=== PATIENT | male | born 1995 | race Hispanic/Latino ===

== ENCOUNTER 2020-06-26 19:10 | Emergency (ER) | payer SELFPAY ==
[2020-06-26] MEDS ORDERED: LIDOCAINE 1% MPF 30 ML VIAL ONE (20:27)
[2020-06-26] MEDS ORDERED: LIDOCAINE 1% MPF 5 ML VIAL ONE (20:29)
--- NOTE | 2020-06-26 21:00 | ER ---
Nurse's Notes [facility] Name: True Ugalde Age: 25 yrs Sex: Male : 1995 Arrival Date: 06/26/2020 Time: 19:11 Bed 30 Private MD: Diagnosis: Superficial laceration left hand Presentation: 06/26 19:54 Chief complaint: Patient states: Pt reports he was stripping wire and missed and cut ea his left hand, reports it happened about two hours ago. Coronavirus screen: At this time, the client does not indicate any symptoms associated with coronavirus-19. Ebola Screen: No symptoms or risks identified at this time. Complicating Factors: There are no complicating factors for this patient. Risk Assessment: Do you want to hurt yourself or someone else? Patient reports no desire to harm self or others. 19:54 Method Of Arrival: Ambulatory ea 19:54 Acuity: YODIT 3 ea 19:57 Onset of symptoms was June 26, 2020. ea Historical: - Allergies: 19:57 No Known Allergies; ea - Home Meds: 19:57 None [Active]; ea - PMHx: 19:57 None; ea - PSHx: 19:57 LEFT ARM SURGERY; ea - Immunization history:: Adult Immunizations unknown. - Social history:: Smoking status: Patient reports the use of cigarette tobacco products, denies chronic smoking, but will smoke occasionally. - Family history:: not pertinent. - Hospitalizations: : No recent hospitalization is reported. Screenin:55 Abuse screen: Denies threats or abuse. Nutritional screening: No deficits noted. ea Tuberculosis screening: No symptoms or risk factors identified. Fall Risk None identified. Assessment: 20:00 General: Appears in no apparent distress. uncomfortable, Behavior is calm, cooperative. bb Pain: Complains of pain in left hand Pain currently is 7 out of 10 on a pain scale. Neuro: Level of Consciousness is awake, alert, obeys commands, Oriented to person, place, time, situation. Cardiovascular: No deficits noted. Respiratory: No deficits noted. Derm: Skin is pink, warm \T\ dry. Musculoskeletal: Circulation, motion, and sensation intact. Injury Description: Laceration sustained to left hand is 2.6 to 7.5 cm long, bleeding moderately, was sustained 2-4 hours ago. 21:25 Reassessment: Patient is alert, oriented x 3, equal unlabored respirations, skin bb warm/dry/pink. suture line intact, dressed with non-adherent pad, kerlix, and an ajit wrap. Pt verbalized understanding of and agrees to plan of care discharge instructions given pt ambulated with steady gait to exit accompanied by family. Vital Signs: 19:58 BP 152 / 94; Pulse 75; Resp 18; Temp 98.3; Pulse Ox 99% ; Weight 95.25 kg; Height 5 ft. ea 10 in. (177.80 cm); Pain 7/10; 19:58 Body Mass Index 30.13 (95.25 kg, 177.80 cm) ea ED Course: 19:11 Patient arrived in ED. bp1 19:55 Triage completed. ea 19:59 Cem Leong MD is Attending Physician. rn 20:00 Patient has correct armband on for positive identification. Bed in low position. Call bb light in reach. Side rails up X 1. Adult w/ patient. 20:07 Karine Cheek RN is Primary Nurse. bb 21:28 Dressings: Kerlix X 1; left hand non-adherent dressing x 1 left hand ajit wrap. bb 21:28 No provider procedures requiring assistance completed. Patient did not have IV access bb during this emergency room visit. Administered Medications: 20:50 Drug: Lidocaine (1 %) 1 vials {Note: administered by Yandy Mancilla BARREL AND RECEIVER ALIGNER to affected bb area.} Volume: 20 ml; Route: Infiltration; 21:23 Follow up: Response: No adverse reaction bb 21:10 Drug: Tetanus-Diphtheria Toxoid Adult 0.5 ml {Direct Entry Midwife: [email or web address]. Exp: bb 06/10/2021. Lot #: [id number]. } Route: IM; Site: right deltoid; 21:23 Follow up: Response: No adverse reaction bb Outcome: 21:00 Discharge ordered by . rn 21:29 Discharged to home ambulatory, with family. bb 21:29 Condition: stable 21:29 Discharge instructions given to patient, Instructed on discharge instructions, follow up and referral plans. medication usage, wound care, Demonstrated understanding of instructions, follow-up care, medications, wound care, Prescriptions given X 1. 21:29 Patient left the ED. bb Signatures: Karine Cheek RN RN bb Nieto, Roman, MD MD rn Antunez, Elena, RN RN Angeles Gonzalez
--- NOTE | 2020-06-26 21:01 | EDPHYS ---
Physician Documentation [facility] Name: True Ugalde Age: 25 yrs Sex: Male : 1995 Arrival Date: 06/26/2020 Time: 19:11 Bed 30 Private MD: ED Physician Cem Leong HPI: 06/26 20:07 This 25 yrs old Male presents to ER via Ambulatory with complaints of rn Laceration To Hand. 20:07 The patient has a laceration. The laceration(s) is(are) located on the left hand. rn Onset: The symptoms/episode began/occurred 2 hour(s) ago. Associated signs and symptoms: Pertinent negatives: heavy bleeding, loss of consciousness, suspected foreign body. The patient has not experienced similar symptoms in the past. Reports stripping wire, accidentally cut left hand with knife about 2 weeks old. Does not feel like anything stuck in hand, knife intact and did not break. No weakness or change in ROM, just pain to base of left hand. . Historical: - Allergies: 19:57 No Known Allergies; ea - Home Meds: 19:57 None [Active]; ea - PMHx: 19:57 None; ea - PSHx: 19:57 LEFT ARM SURGERY; ea - Immunization history:: Adult Immunizations unknown. - Social history:: Smoking status: Patient reports the use of cigarette tobacco products, denies chronic smoking, but will smoke occasionally. - Family history:: not pertinent. - Hospitalizations: : No recent hospitalization is reported. ROS: 20:07 Constitutional: Negative for fever, chills, and weight loss, MS/Extremity: + laceration rn to left hand Neuro: Negative for weakness, numbness, tingling Exam: 20:07 Constitutional: This is a well developed, well nourished patient who is awake, alert, rn and in no acute distress. Ambulatory to room without difficulty. MS/ Extremity: Pulses equal, no cyanosis. Neurovascular intact. Full, normal range of motion. 4 cm linear laceration base of left hand just proximal to base of thumb, good strength, no limitiation of movement. NO active bleeding. No exposure of tendon. Neuro: Awake and alert, GCS 15 Vital Signs: 19:58 BP 152 / 94; Pulse 75; Resp 18; Temp 98.3; Pulse Ox 99% ; Weight 95.25 kg; Height 5 ft. ea 10 in. (177.80 cm); Pain 7/10; 19:58 Body Mass Index 30.13 (95.25 kg, 177.80 cm) ea Laceration: 20:51 Wound Repair of 4cm ( 1.6in ) subcutaneous laceration to heel of left hand. Linear kb shaped.. Distal neuro/vascular/tendon intact. Anesthesia: Wound infiltrated with 8 mls of 1% lidocaine. Wound prep: Extensive cleansing with hibiclenz by me, Wound irrigation with saline by me. Skin closed with 7 5-0 Prolene using 2 simple sutures, 5 cruciate sutures. Patient tolerated well. MDM: 19:59 Patient medically screened. rn 20:59 Differential diagnosis: superficial laceration. Data reviewed: vital signs, nurses rn notes, and as a result, I will discharge patient. Counseling: I had a detailed discussion with the patient and/or guardian regarding: the historical points, exam findings, and any diagnostic results supporting the discharge/admit diagnosis, the need for outpatient follow up, to return to the emergency department if symptoms worsen or persist or if there are any questions or concerns that arise at home. Response to treatment: the patient's symptoms have markedly improved after treatment, and as a result, I will discharge patient. Special discussion: I discussed with the patient/guardian in detail that at this point there is no indication for admission to the hospital. It is understood, however, that if the symptoms persist or worsen the patient needs to return immediately for re-evaluation. 06/26 20:06 Order name: Suture Tray at Bedside; Complete Time: 20:14 rn 06/26 20:06 Order name: Wound Care; Complete Time: 20:14 rn 06/26 20:06 Order name: Wound dressing; Complete Time: 20:14 rn Administered Medications: 20:50 Drug: Lidocaine (1 %) 1 vials {Note: administered by Yandy Mancilla NP to affected bb area.} Volume: 20 ml; Route: Infiltration; 21:23 Follow up: Response: No adverse reaction bb 21:10 Drug: Tetanus-Diphtheria Toxoid Adult 0.5 ml {Capital Equipment Specialist: [employer]. Exp: bb 06/10/2021. Lot #: [id number]. } Route: IM; Site: right deltoid; 21:23 Follow up: Response: No adverse reaction bb Disposition: 06/27 18:59 Co-signature as Attending Physician, Cem Leong MD. rn Disposition: 06/26/20 21:00 Discharged to Home. Impression: Superficial laceration left hand. - Condition is Stable. - Discharge Instructions: Laceration Care, Adult, Sutured Wound Care. - Prescriptions for Augmentin 875- 125 mg Oral Tablet - take 1 tablet by ORAL route every 12 hours for 10 days; 20 tablet. - Medication Reconciliation Form, Thank You Letter, Antibiotic Education, Prescription Opioid Use form. - Follow up: Private Physician; When: 14 days; Reason: Staple/Suture removal. - Problem is new. - Symptoms have improved. Signatures: Yandy Mancilla, LAURA-C HOG TRADER-Karine Narvaez RN Cem Tirado MD MD rn Antunez, Elena, RN SABINE fragoso Corrections: (The following items were deleted from the chart) 06/26 21:29 21:00 06/26/2020 21:00 Discharged to Home. Impression: Superficial laceration left bb hand. Condition is Stable. Forms are Medication Reconciliation Form, Thank You Letter, Antibiotic Education, Prescription Opioid Use. Follow up: Private Physician; When: 14 days; Reason: Staple/Suture removal. Problem is new. Symptoms have improved. rn
[2020-06-26] MEDS ORDERED: TETANUS & DIPHTHERIA TOX,ADULT 0.5 ML VIAL ONE (21:26)
[2020-06-26 21:42] VITALS: BP 152/94; TEMP 98.3; O2SAT 99
== END 2020-06-26 21:29 | disposition home or self-care (01) ==
LOC: ER 19:10
PROC: 0JQK0ZZ Repair Left Hand Subcutaneous Tissue and Fascia, Open Approach (ICD-10-PCS; principal; 2020-06-26)
DX: S61.412A Laceration without foreign body of left hand, initial encounter (principal); W26.0XXA Contact with knife, initial encounter; Y93.89 Activity, other specified; Z23 Encounter for immunization; F17.210 Nicotine dependence, cigarettes, uncomplicated
CPT/HCPCS: 90471; 90714; 99283

== ENCOUNTER 2020-07-10 16:57 | Emergency (ER) | payer SELFPAY ==
--- NOTE | 2020-07-10 17:10 | EDPHYS ---
Physician Documentation [facility] Name: True Ugalde Age: 25 yrs Sex: Male : 1995 Arrival Date: 07/10/2020 Time: 16:59 Bed Waiting Private MD: ED Physician Dilma Soriano HPI: 07/10 18:06 This 25 yrs old Male presents to ER via Ambulatory with complaints of Suture kb Removal. 18:06 The patient has sutures on the heel of left hand. Previous treatment: The patient was kb initially treated 14 day(s) ago, the care was rendered at [facility], Treatment type: The patient's original treatment included sutures. Sutures/allen progress: The patient has no c/o's. The wound is well-healing with no redness, swelling, discharge, or dehiscence reported. The patient has not experienced similar symptoms in the past. The patient has not recently seen a physician. Historical: - Allergies: 17:04 No Known Allergies; ca1 - Home Meds: 17:04 None [Active]; ca1 - PMHx: 17:04 None; ca1 - PSHx: 17:04 LEFT ARM SURGERY; ca1 - Immunization history:: Client reports having NOT received the Covid vaccine. Last tetanus immunization: < 5 years ago. - Social history:: Smoking status: Patient reports the use of cigarette tobacco products, denies chronic smoking, but will smoke occasionally. ROS: 17:59 Constitutional: Negative for fever, chills, and weight loss. kb 17:59 Skin: Positive for laceration(s), of the heel of left hand, sutures in place. 17:59 All other systems are negative. Exam: 17:59 Constitutional: This is a well developed, well nourished patient who is awake, alert, kb and in no acute distress. Head/Face: Normocephalic, atraumatic. ENT: Moist Mucous membranes Respiratory: Respirations even and unlabored. No increased work of breathing, no retractions or nasal flaring. MS/ Extremity: Pulses equal, no cyanosis. Neurovascular intact. Full, normal range of motion. Neuro: Awake and alert, GCS 15, oriented to person, place, time, and situation. Moves all extremities. Normal gait. Psych: Awake, alert, with orientation to person, place and time. Behavior, mood, and affect are within normal limits. 17:59 Skin: Wound recheck: Suture laceration closure: the wound is healing well, the edges are well approximated, no evidence of dehiscence, no drainage, no erythema, no swelling. Vital Signs: 17:06 BP 132 / 89; Pulse 65; Resp 16 S; Temp 97.4(TE); Pulse Ox 100% on R/A; Weight 95.25 kg ca1 (R); Height 5 ft. 10 in. (177.80 cm) (R); Pain 0/10; 17:06 Body Mass Index 30.13 (95.25 kg, 177.80 cm) ca1 Procedures: 17:59 Suture/Staple removal: Removed 7 sutures, from heel of left hand, site appears well kb healed, dressed with steristrips. Patient tolerated well. MDM: 17:02 Patient medically screened. kb 17:56 Data reviewed: vital signs, nurses notes. Data interpreted: Pulse oximetry: on room air kb is 100 %. Interpretation: normal. Counseling: I had a detailed discussion with the patient and/or guardian regarding: the historical points, exam findings, and any diagnostic results supporting the discharge/admit diagnosis, the need for outpatient follow up, a family practitioner, to return to the emergency department if symptoms worsen or persist or if there are any questions or concerns that arise at home. Administered Medications: No medications were administered Disposition: 18:20 Co-signature as Attending Physician, Dilma Soriano MD. ma2 Disposition: 07/10/20 17:09 Discharged to Home. Impression: Encounter for removal of sutures. - Condition is Stable. - Discharge Instructions: Suture Removal, Care After. - Medication Reconciliation Form, Thank You Letter, Antibiotic Education, Prescription Opioid Use form. - Follow up: Emergency Department; When: As needed; Reason: Worsening of condition. Follow up: Private Physician; When: 2 - 3 days; Reason: Recheck today's complaints, Continuance of care, Re-evaluation by your physician. Signatures: Yandy Mancilla, LAURA-C LAURA-Dilma Gregory MD MD ma2 Ashley Restrepo RN RN ca1 Corrections: (The following items were deleted from the chart) 17:13 17:09 07/10/2020 17:09 Discharged to Home. Impression: Encounter for removal of ca1 sutures. Condition is Stable. Forms are Medication Reconciliation Form, Thank You Letter, Antibiotic Education, Prescription Opioid Use. Follow up: Emergency Department; When: As needed; Reason: Worsening of condition. Follow up: Private Physician; When: 2 - 3 days; Reason: Recheck today's complaints, Continuance of care, Re-evaluation by your physician. kb
--- NOTE | 2020-07-10 17:10 | ER ---
Nurse's Notes [facility] Name: True Ugalde Age: 25 yrs Sex: Male : 1995 Arrival Date: 07/10/2020 Time: 16:59 Bed Waiting Private MD: Diagnosis: Encounter for removal of sutures Presentation: 07/10 17:03 Chief complaint: Patient states: lac repair on 06/26/2020. For removal today. Coronavirus ca1 screen: Client denies travel out of the [place] in the last 14 days. At this time, the client does not indicate any symptoms associated with coronavirus-19. Ebola Screen: Patient negative for fever greater than or equal to 101.5 degrees Fahrenheit, and additional compatible Ebola Virus Disease symptoms Patient denies exposure to infectious person. Patient denies travel to an Ebola-affected area in the 21 days before illness onset. No symptoms or risks identified at this time. Initial Sepsis Screen: Does the patient meet any 2 criteria? No. Patient's initial sepsis screen is negative. Does the patient have a suspected source of infection? No. Patient's initial sepsis screen is negative. Risk Assessment: Do you want to hurt yourself or someone else? Patient reports no desire to harm self or others. Onset of symptoms was July 10, 2020. 17:03 Method Of Arrival: Ambulatory ca1 17:03 Acuity: YODIT 5 ca1 Triage Assessment: 17:04 General: Appears in no apparent distress. comfortable, Behavior is calm, cooperative, ca1 appropriate for age. Pain: Denies pain. Derm: Skin is intact, is healthy with good turgor, Skin is pink, warm \T\ dry. Historical: - Allergies: 17:04 No Known Allergies; ca1 - Home Meds: 17:04 None [Active]; ca1 - PMHx: 17:04 None; ca1 - PSHx: 17:04 LEFT ARM SURGERY; ca1 - Immunization history:: Client reports having NOT received the Covid vaccine. Last tetanus immunization: < 5 years ago. - Social history:: Smoking status: Patient reports the use of cigarette tobacco products, denies chronic smoking, but will smoke occasionally. Screenin:05 Abuse screen: Denies threats or abuse. Denies injuries from another. Nutritional ca1 screening: No deficits noted. Tuberculosis screening: No symptoms or risk factors identified. Fall Risk None identified. Assessment: 17:05 Reassessment: see triage notes. ca1 Vital Signs: 17:06 BP 132 / 89; Pulse 65; Resp 16 S; Temp 97.4(TE); Pulse Ox 100% on R/A; Weight 95.25 kg ca1 (R); Height 5 ft. 10 in. (177.80 cm) (R); Pain 0/10; 17:06 Body Mass Index 30.13 (95.25 kg, 177.80 cm) ca1 ED Course: 16:59 Patient arrived in ED. mr 17:01 [facility] kb 17:01 Dilma Soriano MD is Attending Physician. kb 17:03 Triage completed. ca1 17:04 Arm band placed on right wrist. ca1 17:05 Patient has correct armband on for positive identification. ca1 17:06 No provider procedures requiring assistance completed. Patient did not have IV access ca1 during this emergency room visit. Removal of Removed sutures from heel of left hand Suture site is well healed Patient tolerated well. Administered Medications: No medications were administered Outcome: 17:07 Discharged to home ambulatory. ca1 17:07 Condition: stable 17:07 Discharge instructions given to patient, Instructed on discharge instructions, follow up and referral plans. Demonstrated understanding of instructions, follow-up care. 17:09 Discharge ordered by MD. kb 17:13 Patient left the ED. ca1 Signatures: Yandy Mancilla FNP-C FNP-Kristel Nicole Dixon mr Kaye, Ashley, RN RN ca1
[2020-07-10 17:30] VITALS: BP 132/89; TEMP 97.4; O2SAT 100
== END 2020-07-10 17:13 | disposition home or self-care (01) ==
LOC: ER 16:57
DX: Z48.02 Encounter for removal of sutures (principal); S61.412D Laceration without foreign body of left hand, subsequent encounter; F17.210 Nicotine dependence, cigarettes, uncomplicated
CPT/HCPCS: 99281

== ENCOUNTER 2021-02-12 05:33 | Emergency (ER) | payer SELFPAY ==
[2021-02-12] MEDS ORDERED: PROMETHAZINE INJ 25 MG/ML AMP ONE (05:51)
[2021-02-12] MEDS ORDERED: NA CHLORIDE 0.9% 1,000 ML ONE ×2 (05:52→08:25)
[2021-02-12] MEDS ORDERED: FAMOTIDINE 20 MG/2 ML VIAL IV ONE (05:52)
[2021-02-12] MEDS ORDERED: MORPHINE 4 MG/ML SYR ONE (05:52)
[2021-02-12 06:00] LABS: Absolute Lymphocytes (CBC) 0.8 K/uL (0.7-4.9); Basophils % 0.2 % (0-1.3); Hematocrit 45.3 % (39.6-49.0); Lymphocytes % 7.5 % (15.3-44.8); MPV 9.2 fL (7.6-11.3); RBC Red Blood Cell Count 5.32 M/uL (4.33-5.43)
[2021-02-12 06:35] LABS: Albumin 4.5 g/dL (3.4-5.0); Bilirubin Direct 0.3 mg/dL (0-0.2); Bilirubin Total 1.1 mg/dL (0.2-1.0); Blood Morphology Comment NOT SEEN (NOT SEEN); Magnesium 1.8 mg/dL (1.8-2.4); Platelet Estimate ADEQ; White Blood Cell Scan OK (OK)
[2021-02-12 06:38] LABS: Potassium 2.8 mmol/L (3.5-5.1)
[2021-02-12 06:51] LABS: SARS-COV-2 RT PCR NEGATIVE (NEGATIVE)
[2021-02-12] MEDS ORDERED: KCL 20 MEQ/100 mL IVPB 100 ML IV ONE (06:51)
[2021-02-12] MEDS ORDERED: NA CHLORIDE 0.9% 500 ML ONE (06:51)
--- NOTE | 2021-02-12 07:41 | RAD REPORT ---
EXAM DESCRIPTION: CTAbdomen Pelvis W Contrast - 02/12/2021 7:17 am CLINICAL HISTORY: Diarrhea;Abd pain;Nausea / vomiting COMPARISON: No comparisons TECHNIQUE: CT of the abdomen and pelvis was performed. All CT scans are performed using dose optimization technique as appropriate and may include automated exposure control or mA/KV adjustment according to patient size. FINDINGS: Lower chest: Small hiatal hernia. Mild circumferential thickening of distal esophagus. Liver: No acute abnormality or suspicious lesions. Biliary: No biliary ductal dilatation. Stomach: No significant focal abnormality. Duodenum: No significant focal abnormality. Pancreas: No significant abnormality. Spleen: No significant abnormality. Adrenal: No suspicious lesions. Kidney/ureter: No hydronephrosis. No renal calculi. Too small to characterize and/or benign appearing renal lesions are noted. Retroperitoneum: No retroperitoneal adenopathy. Vascular: No aneurysm. Bowel: Fluid distended small bowel in the right hemiabdomen. Multiple small air-fluid levels are pres ent. The affected loops of small bowel measure up to 2.5 cm.. No appendicitis. Peritoneum: No ascites or free air. Bladder: Grossly unremarkable. Reproductive: No adnexal masses. Bones: No acute fracture. Other: n/a IMPRESSION: Fluid distended small bowel with small air-fluid levels in the right hemiabdomen most li clari representing an enteritis. Normal appendix.
[2021-02-12 07:55] LABS: Urine Blood Negative (Negative); Urine Glucose Trace (Negative); Urine Protein Negative (Negative); Urine pH 8.5 (5.0-7.0)
--- NOTE | 2021-02-12 07:56 | RAD REPORT ---
EXAM DESCRIPTION: RAD - Chest Single View - 02/12/2021 6:09 am CLINICAL HISTORY: SOB COMPARISON: No comparisons FINDINGS: Lines: None. Lungs: No evidence of edema or pneumonia. Pleural: No significant pleural effusions or pneumothorax. Cardiac: The heart size is within normal limits. Bones: No acute fractures. Other: IMPRESSION: No acute cardiopulmonary disease.
--- NOTE | 2021-02-12 08:07 | EKG ---
Test Date: 2021-02-12 Test Time: 05:51:54 Car Cleaning Supervisor: ANTONY MEASUREMENT RESULTS: Intervals: Rate: 121 WY: 128 QRSD: 78 QT: 290 QTc: 411 [place]: P: 35 WY: 128 QRS: 67 T: 66 INTERPRETIVE STATEMENTS: Sinus tachycardia Nonspecific T wave abnormality Abnormal ECG No previous ECG available for comparison Electronically Signed On 02-12-21 08:07:28 VACUUM PAN TENDER by [employer]
[2021-02-12] MEDS ORDERED: CIPROFLOXACIN 400mg IV 0 MG/0 ML BAG IV ONE (08:25)
[2021-02-12] MEDS ORDERED: POTASSIUM 25 MEQ EFFERV TAB ONE (08:25)
[2021-02-12] MEDS ORDERED: NS KCL 20MEQ 1,000 ML IV ONE (08:40)
[2021-02-12] MEDS ORDERED: CIPROFLOXACIN HCL 500 MG TAB ONE (08:40)
--- NOTE | 2021-02-12 09:10 | EDPHYS ---
Physician Documentation [facility] Name: True Ugalde Age: 25 yrs Sex: Male : 1995 Arrival Date: 02/12/2021 Time: 05:34 Bed 7 Private MD: ED Physician Benjamin Boogie HPI: 02/12 05:59 This 25 yrs old Male presents to ER via EMS with complaints of Nausea. mh7 Vomiting. Diarrhea. Shortness of breath.. 05:59 The patient presents to the emergency department with nausea, that is moderate, mh7 vomiting, that is intermittent, 2 times since the onset of symptoms, described as undigested food, diarrhea, that is intermittent, abdominal pain, of the epigastric area, right upper quadrant and left upper quadrant. Onset: The symptoms/episode began/occurred this morning, today, at 02:00. Possible causes: unknown. The symptoms are aggravated by nothing. The symptoms are alleviated by nothing. Associated signs and symptoms: Pertinent positives: diarrhea, nausea, vomiting, Shortness of breath, Pertinent negatives: anorexia, belching, constipation, fever, flatulence, GI bleeding, hematuria. Severity of symptoms: At their worst the symptoms were moderate today, in the emergency department the symptoms are unchanged despite EMS interventions. Historical: - Allergies: 05:36 No Known Allergies; sm5 - Home Meds: 05:36 omeprazole Oral [Active]; sm5 - Immunization history:: Client reports having NOT received the Covid vaccine. - Social history:: Smoking status: Patient reports the use of cigarette tobacco products, Patient uses alcohol, on weekends. ROS: 05:59 Constitutional: Negative for fever, chills, and weight loss, Eyes: Negative for injury, mh7 pain, redness, and discharge, ENT: Negative for injury, pain, and discharge, Neck: Negative for injury, pain, and swelling, Cardiovascular: Negative for chest pain, palpitations, and edema, Back: Negative for injury and pain, : Negative for injury, bleeding, discharge, and swelling, MS/Extremity: Negative for injury and deformity, Skin: Negative for injury, rash, and discoloration, Neuro: Negative for headache, weakness, numbness, tingling, and seizure, Psych: Negative for depression, anxiety, suicide ideation, homicidal ideation, and hallucinations, Allergy/Immunology: Negative for hives, rash, and allergies, Endocrine: Negative for neck swelling, polydipsia, polyuria, polyphagia, and marked weight changes, Hematologic/Lymphatic: Negative for swollen nodes, abnormal bleeding, and unusual bruising. Exam: 05:59 Head/Face: Normocephalic, atraumatic. Eyes: Pupils equal round and reactive to light, mh7 extra-ocular motions intact. Lids and lashes normal. Conjunctiva and sclera are non-icteric and not injected. Cornea within normal limits. Periorbital areas with no swelling, redness, or edema. Neck: Trachea midline, no thyromegaly or masses palpated, and no cervical lymphadenopathy. Supple, full range of motion without nuchal rigidity, or vertebral point tenderness. No Meningismus. Chest/axilla: Normal chest wall appearance and motion. Nontender with no deformity. No lesions are appreciated. 05:59 Respiratory: Lungs have equal breath sounds bilaterally, clear to auscultation and percussion. No rales, rhonchi or wheezes noted. No increased work of breathing, no retractions or nasal flaring. 05:59 Back: No spinal tenderness. No costovertebral tenderness. Full range of motion. Skin: Warm, dry with normal turgor. Normal color with no rashes, no lesions, and no evidence of cellulitis. MS/ Extremity: Pulses equal, no cyanosis. Neurovascular intact. Full, normal range of motion. Neuro: Awake and alert, GCS 15, oriented to person, place, time, and situation. Cranial nerves II-XII grossly intact. Motor strength 5/5 in all extremities. Sensory grossly intact. Cerebellar exam normal. Normal gait. 05:59 Constitutional: The patient appears in no acute distress, alert, awake, anxious, uncomfortable. 05:59 Cardiovascular: Rate: tachycardic, Rhythm: regular, Pulses: no pulse deficits are appreciated, Heart sounds: normal, normal S1and S2, Edema: is not appreciated, JVD: is not appreciated. 05:59 Abdomen/GI: Inspection: abdomen appears normal, Bowel sounds: normal, in all quadrants, Palpation: moderate abdominal tenderness, in the epigastric area, right upper quadrant and left upper quadrant, mass, is not appreciated, rebound tenderness, is not appreciated, voluntary guarding, is not appreciated, involuntary guarding, is not appreciated, no appreciated organomegaly, Rectal exam: the exam is deferred, because of patient request, Indicators: McBurney's point is not tender, Cordero's sign is negative, Rovsing's sign is negative, Obturator sign is negative, Psoas sign is negative, Liver: no appreciated palpable abnormalities, Hernia: not appreciated. 05:59 Psych: Behavior/mood is anxious, Affect is animated, Oriented to person, place, time, Patient has no thoughts/intents to harm self or others. Judgement / Insight is normal. Memory is normal. Delusions/hallucinations are not present. 08:36 ECG was reviewed by the Attending Physician. [facility] Vital Signs: 05:35 BP 111 / 85; Pulse 108; Resp 23; Temp 98.1(O); Pulse Ox 100% on R/A; Weight 96.62 kg; 5 Height 5 ft. 10 in. (177.80 cm); Pain 5/10; 06:23 BP 123 / 83; Pulse 109; Resp 24 S; Pulse Ox 99% on R/A; as6 07:00 BP 129 / 82; Pulse 109; Resp 18; Pulse Ox 100% ; al4 07:20 BP 138 / 90; Pulse 101; Resp 20; Temp 99.2; Pulse Ox 100% ; Pain 0/10; al4 07:45 BP 122 / 80; Pulse 102; Resp 20; Pulse Ox 99% on R/A; Pain 0/10; al4 08:20 BP 133 / 70; Pulse 105; Resp 20 S; Pulse Ox 100% on R/A; al4 08:40 BP 119 / 74; Pulse 106; Resp 20 S; Pulse Ox 100% on R/A; al4 09:00 BP 125 / 70; Pulse 94; Resp 20 S; Pulse Ox 99% on R/A; al4 10:00 BP 124 / 69; Pulse 99; Resp 25 S; Pulse Ox 100% on R/A; Pain 0/10; al4 10:20 BP 122 / 85; Pulse 96; Resp 24 S; Pulse Ox 100% on R/A; Pain 0/10; al4 05:35 Body Mass Index 30.56 (96.62 kg, 177.80 cm) [facility] MDM: 07:25 Patient medically screened. [facility] 08:28 Differential diagnosis: Nonspecific abd pain, gastritis, viral gastroenteritis, spencer gastroenteritis. Data reviewed: vital signs, nurses notes. Data interpreted: Pulse oximetry: on room air is 99 %. Counseling: I had a detailed discussion with the patient and/or guardian regarding: the historical points, exam findings, and any diagnostic results supporting the discharge/admit diagnosis, lab results, radiology results, the need for outpatient follow up, for definitive care, a family practitioner. 02/12 05:45 Order name: Basic Metabolic Panel; Complete Time: 06:48 7 02/12 05:45 Order name: CBC with Diff; Complete Time: 06:48 7 02/12 05:45 Order name: Hepatic Function; Complete Time: 06:48 7 02/12 05:45 Order name: Lipase; Complete Time: 06:48 7 02/12 05:45 Order name: COVID-19/FLU A+B (Document "Date of Onset" if Symptomatic); Complete Time: mh7 06:56 02/12 05:45 Order name: Chest Single View XRAY; Complete Time: 08:15 7 02/12 05:45 Order name: ETOH Level; Complete Time: 06:31 7 02/12 05:46 Order name: Magnesium; Complete Time: 06:48 7 02/12 06:04 Order name: CBC Smear Scan; Complete Time: 06:48 EDMS 02/12 06:57 Order name: CT Abd/Pelvis - IV Contrast Only; Complete Time: 08:15 02/12 07:55 Order name: Urine Dipstick-Ancillary; Complete Time: 08:15 EDMS 02/12 05:45 Order name: IV Saline Lock; Complete Time: 06:02 02/12 05:45 Order name: Labs collected and sent; Complete Time: 06:02 02/12 05:45 Order name: Urine Dipstick-Ancillary (obtain specimen); Complete Time: 07:58 7 02/12 05:45 Order name: EKG; Complete Time: 05:45 02/12 05:45 Order name: EKG - Nurse/Tech; Complete Time: 06:02 02/12 09:08 Order name: PO challenge: juice; Complete Time: 09:09 spencer EC:36 Rate is 121 beats/min. Rhythm is regular. QRS [place] is Normal. ND interval is normal. spencer QRS interval is normal. QT interval is normal. T waves are Normal. No ST changes noted. Clinical impression: Sinus tachycardia and No evidence of ischemia. Interpreted by me. Reviewed by me. Administered Medications: 06:00 Drug: NS 0.9% 1000 ml Route: IV; Rate: 1000 ml; Site: right antecubital; tw5 06:00 Drug: Phenergan (promethazine) 12.5 mg Route: IVP; Site: right antecubital; tw5 07:00 Follow up: Response: No adverse reaction al4 06:00 Drug: Pepcid (famotidine) 20 mg Route: IVP; Site: right antecubital; tw5 07:00 Follow up: Response: No adverse reaction al4 06:00 Drug: morphine 4 mg Route: IVP; Site: right antecubital; tw5 07:00 Follow up: Response: No adverse reaction; RASS: Alert and Calm (0) al4 06:58 Drug: Potassium Chloride 20 mEq Route: IV; Rate: per protocol; Site: right antecubital; sm5 08:00 Follow up: Response: No adverse reaction; IV Status: Completed infusion al4 08:27 Not Given (Duplicate Order): Potassium Chloride 10 mEq IV at per protocol once; spencer administer over 1 hour 08:28 Not Given (Duplicate Order): Cipro (ciprofloxacin) 400 mg 200 ml IVPB once over 60 mins spencer 09:02 Drug: NS 0.9% with KCl 20 mEq/L 1000 ml Route: IV; Rate: 999 ml/hr; Site: right al4 antecubital; 10:41 Follow up: Response: No adverse reaction; IV Status: Completed infusion al4 09:02 Drug: Cipro (ciprofloxacin) 500 mg Route: PO; al4 10:09 Follow up: Response: No adverse reaction al4 09:03 Drug: NS 0.9% 1000 ml Route: IV; Rate: 1 bolus; Site: right antecubital; al4 10:42 Follow up: Response: No adverse reaction; IV Status: Completed infusion al4 09:03 Drug: Potassium Effervescent Tablet 25 mEq Route: PO; al4 10:09 Follow up: Response: No adverse reaction al4 Disposition Summary: 02/12/21 09:09 Discharge Ordered Location: Home spencer Problem: new spencer Symptoms: have improved spencer Condition: Stable spencer Diagnosis - Other viral enteritis spencer - Vomiting spencer - Diarrhea, unspecified spencer - Hypokalemia spencer - Hyperglycemia, unspecified spencer Followup: spencer - With: Private Physician - When: 2 - 3 days - Reason: Recheck today's complaints, Continuance of care, Re-evaluation by your physician Discharge Instructions: - Discharge Summary Sheet spencer - Food Choices to Help Relieve Diarrhea, Adult spencer - Diarrhea, Adult spencer - Potassium Content of Foods spencer - Nausea and Vomiting, Adult spencer - Hyperglycemia spencer - Diarrhea, Adult, [id number] spencer - Hypokalemia spencer - Vomiting, Adult spencer Forms: - Medication Reconciliation Form spencer - Thank You Letter spencer - Antibiotic Education spencer - Prescription Opioid Use spencer - Work release form al4 Prescriptions: - Zofran 4 mg Oral Tablet - take 1 tablet by ORAL route every 12 hours As needed; 20 tablet; Refills: 0, spencer Product Selection Permitted - Potassium Chloride 20 meq Oral Packet - take 1 packet by ORAL route every 12 hours 1 packet in 6 (six) ounces of water spencer or juice; Take after meal; 10 packet; Refills: 0, Product Selection Permitted - Cipro 500 mg Oral Tablet - take 1 tablet by ORAL route every 12 hours for 3 days; 6 tablet; Refills: 0, spencer Product Selection Permitted Signatures: Dispatcher [employer] EDBenjamin Wagner MD MD cha Holmes, Maurice, MD MD [facility] Marilyn Esparza 5 Delgado Bowers Sarah, RN RN sm5
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
[2021-02-12 11:16] VITALS: TEMP 99.2
[2021-02-12 11:22] VITALS: O2SAT 100
[2021-02-12 11:23] VITALS: BP 122/85
== END 2021-02-12 10:42 | disposition home or self-care (01) ==
LOC: ER 05:33
DX: E87.6 Hypokalemia (principal); R73.9 Hyperglycemia, unspecified; R19.7 Diarrhea, unspecified; Z72.0 Tobacco use
CPT/HCPCS: 0240U; 36415; 71045; 74177; 80048; 80076; 80320; 81003; 83690; 83735; 85025; 93005; 96361; 96365; 96375; 99285; J0744; J2550; J3480; J7030; J7040; Q9967